=== PATIENT | female | born 1955 | race Caucasian/White ===

== ENCOUNTER → 2021-09-01 15:08 | Outpatient (CLI) | payer MEDICARE, OTHER, SELFPAY ==
--- NOTE | 2021-09-01 | DI.RAD.S_ITS ---
PROCEDURE: XR HAND RT MIN 3V INDICATIONS: right thumb pain TECHNIQUE: PA view of the hand and two views of the thumb acquired. COMPARISON: None. FINDINGS: Bones: No acute fractures or dislocations. Carpal bones are normally aligned. No suspicious bony lesions. Severe degenerative changes are seen at the 1st carpometacarpal joint and there are moderate triscaphe joint degenerative changes. Mild scattered degenerative changes are seen in the interphalangeal joints of the fingers. Soft tissues: No suspicious soft tissue calcifications. IMPRESSION: No acute osseous abnormality. Severe 1st carpometacarpal osteoarthrosis and moderate triscaphe osteoarthrosis. Dictated by: Arvin Morgan M.D. on 09/01/2021 at 16:51 Approved by: Arvin Morgan M.D. on 09/01/2021 at 16:52
== END ==
PROVIDERS: Referring Provider Physician Assistant; Visit Provider Physician Assistant
DX: M18.11 Unilateral primary osteoarthritis of first carpometacarpal joint, right hand (principal); M19.031 Primary osteoarthritis, right wrist; M79.644 Pain in right finger(s)
CPT/HCPCS: 73130